=== PATIENT | male | born 1955 | race American Indian/Alaskan Native ===

== ENCOUNTER 2020-02-25 11:21 | Emergency (ER) | payer SELFPAY ==
[2020-02-25 14:15] VITALS: BP 208/118
[2020-02-25] MEDS ORDERED: AZITHROMYCIN 1 GM ORAL PWDR PACKET PO ONE (14:27)
[2020-02-25] MEDS ORDERED: LIDOCAINE-MPF (1%) 10 MG/1 ML VIAL 5 ML INFILTRATI ONE (14:27)
--- NOTE | 2020-02-25 14:36 | Emergency Department Report ---
ED Male HPI - General Chief complaint: Urogenital-Male Stated complaint: PENIS DISCHARGE Time Seen by Provider: 02/25/20 12:55 Source: patient Mode of arrival: Ambulatory Limitations: No Limitations - History of Present Illness Initial comments: Patient is a 64-year-old F [place] male who is complaining of penile discharge. States started yesterday. Patient had a transurethral prostate surgery approximately week and a half ago. Had some mild burning with urination but had not had any discharge until yesterday. Patient also states he may have "been burned ". Patient has had some sexual contact with no protection with someone who he may be worried has an STD. He denies any abdominal pain fevers chills cough cold congestion nausea vomiting at this time. - Related Data Previous Rx's Medication Instructions Recorded Last Taken Type Ciprofloxacin HCl [Ciprofloxacin 500 mg PO Q12HR #14 tab 02/25/20 Unknown Rx TAB] Ibuprofen [Motrin] 800 mg PO Q8HR PRN #14 tablet 02/25/20 Unknown Rx Phenazopyridine [Pyridium] 100 mg PO TID #6 tab 02/25/20 Unknown Rx Allergies Allergy/AdvReac Type Severity Reaction Status Date / Time No Known Allergies Allergy Unverified 02/25/20 11:26 ED Review of Systems ROS: Stated complaint: PENIS DISCHARGE Other details as noted in HPI Comment: All other systems reviewed and negative ED Past Medical Hx - Past Medical History Hx Hypertension: Yes Hx Diabetes: Yes - Surgical History Additional Surgical History: PROSTRATE - Social History Smoking Status: Never Smoker - Medications Home Medications: Home Medications Medication Instructions Recorded Confirmed Last Taken Type Ciprofloxacin HCl [Ciprofloxacin 500 mg PO Q12HR #14 tab 02/25/20 Unknown Rx TAB] Ibuprofen [Motrin] 800 mg PO Q8HR PRN #14 tablet 02/25/20 Unknown Rx Phenazopyridine [Pyridium] 100 mg PO TID #6 tab 02/25/20 Unknown Rx ED Physical Exam - General Limitations: No Limitations General appearance: alert, in no apparent distress - Head Head exam: Present: atraumatic, normocephalic - Eye Eye exam: Present: normal appearance - ENT ENT exam: Present: mucous membranes moist - Neck Neck exam: Present: normal inspection - Respiratory Respiratory exam: Present: normal lung sounds bilaterally. Absent: respiratory distress, wheezes, rales, rhonchi - Cardiovascular Cardiovascular Exam: Present: regular rate, normal rhythm, normal heart sounds. Absent: systolic murmur, diastolic murmur, rubs, gallop - GI/Abdominal GI/Abdominal exam: Present: soft, normal bowel sounds. Absent: distended, tenderness, guarding - Rectal Rectal exam: Present: deferred - Extremities Exam Extremities exam: Present: normal inspection - Back Exam Back exam: Present: normal inspection - Neurological Exam Neurological exam: Present: alert, oriented X3 - Psychiatric Psychiatric exam: Present: normal affect, normal mood - Skin Skin exam: Present: warm, dry, intact, normal color. Absent: rash ED Course Vital Signs 02/25/20 02/25/20 11:28 14:15 Temperature 98.1 F Pulse Rate 73 72 Respiratory 20 Rate Blood Pressure 180/88 Blood Pressure 208/118 [Left] O2 Sat by Pulse 98 Oximetry ED Medical Decision Making - Medical Decision Making Urinalysis and GC chlamydia have been sent. Patient be started on Cipro and was given Rocephin and azithromycin. Patient can follow-up with outpatient medical records for his STD results. Critical care attestation.: If time is entered above; I have spent that time in minutes in the direct care of this critically ill patient, excluding procedure time. ED Disposition Clinical Impression: Urethritis Disposition: DC-01 TO HOME OR SELFCARE Is pt being admited?: No Does the pt Need Aspirin: No Condition: Stable Instructions: Urethritis, Adult Additional Instructions: Please follow-up with medical records in 1 week to find out the results of your STD testing. Prescriptions: Ciprofloxacin HCl [Ciprofloxacin TAB] 500 mg PO Q12HR #14 tab Ibuprofen [Motrin] 800 mg PO Q8HR PRN #14 tablet PRN Reason: Pain, Moderate (4-6) Phenazopyridine [Pyridium] 100 mg PO TID #6 tab Forms: Work/School Release Form(ED), STI Treatment and Prevention Time of Disposition: 14:39
[2020-02-25 14:42] LABS: Bilirubin,Urine NEG (Negative); Blood,Urine SM (Negative); Color,Urine Yellow (Yellow); Protein,Urine <15 mg/dL mg/dL (Negative)
== END 2020-02-25 14:49 | disposition home or self-care (01) ==
LOC: ED 11:21
DX: N34.2 Other urethritis (principal); I10 Essential (primary) hypertension; E11.9 Type 2 diabetes mellitus without complications; Z79.899 Other long term (current) drug therapy
CPT/HCPCS: 81001; 87591; 96372; 99283; J0696